=== PATIENT | male | born 1985 | race Caucasian/White ===

== ENCOUNTER → 2021-07-20 14:18 | Outpatient (CLI) | payer MEDICAID, SELFPAY | PROVIDERS: Visit Provider Nurse Practitioner | DX: Z20.822 Contact with and (suspected) exposure to COVID-19 (principal) | CPT/HCPCS: C9803; U0003; U0005 ==

== ENCOUNTER 2021-12-15 15:02 | Emergency (ER) | payer MEDICAID, SELFPAY ==
[2021-12-15 16:15] VITALS: BP 121/89; PULSE 121; RESP 18; TEMP 36.6; O2SAT 99; BMI 38.4
--- NOTE | 2021-12-15 16:57 | HMH.EDUTC ---
[facility] [place]: Injury of conjunctiva and corneal abrasion of right eye w/o FB Qualifiers: Encounter type: initial encounter Qualified Code(s): S05.01XA - Injury of conjunctiva and corneal abrasion without foreign body, right eye, initial encounter Disposition: Home, Self-Care Condition on Discharge: Good Instructions: DI for Corneal Abrasion, Corneal Abrasion Additional Instructions: Use the eye drops as directed. If your symptoms are not feeling better within 48 to 72 hours, please follow up with your eye doctor. If you do not have one, I recommend for you to follow up with [facility]-- Follow up with your regular doctor. GO TO THE ER FOR ANY WORSENING SYMPTOMS OR CONCERNS Prescriptions: Moxifloxacin HCl [Vigamox] 1 drp EYE-RIGHT TID 7 Days #3 ml Transmission Status: Pending to [id number] Referrals: Agustin Sawyer MD [Primary Care Provider] - Time of Disposition: 17:20 Medical Decision Making - Medical Records Medical records reviewed: No: I reviewed the patient's medical records. - Fernando Inquiry Pt receiving controlled substance: No Vital Signs: 12/15/21 16:15 Temperature 97.9 F Temperature Source Oral Pulse Rate [Right Brachial] 121 H Respiratory Rate 18 Blood Pressure [Right Arm] 121/89 Blood Pressure Mean [Right Arm] 99 Blood Pressure Source [Right Arm] Automatic Cuff Blood Pressure Position [Right Arm] Sitting 02 Sat by Pulse Oximetry 99 Oxygen Delivery Method Room Air [facility] [place] - General Stated complaint: rt eye irritation/burning Time Seen by Provider: 12/15/21 16:57 Mode of Arrival: Ambulatory Source of Information: Patient Limitations: No Limitations Description of Symptoms (Recalled from Triage Doc. by RN): PATIENT C/O PAIN IN RIGHT EYE X 2 WEEKS HEENT Symptoms (Recalled from RN notes): Yes Resp Symptoms (Recalled from RN notes): No Skin Symptoms (Recalled from RN notes): No MS Symptoms (Recalled from RN notes): No Functional Status (Recalled from RN notes): WNL - History of Present Illness Provider Complaint: He state that for the past 2 weeks he has had right eye irritation. His symptoms are usually better in the mornings, but by the end of the evening they return and his eye feels irritated. He denies any injury, possibility of foreign body. He denies any change in his vision. - Related Data Previous Rx's Medication Instructions Recorded Moxifloxacin HCl [Vigamox] 1 drp EYE-RIGHT TID 7 Days #3 ml 12/15/21 Allergies Allergy/AdvReac Type Severity Reaction Status Date / Time Penicillins Allergy Verified 12/15/21 16:31 Sulfa (Sulfonamide Allergy Verified 12/15/21 16:31 Antibiotics) - Worker's Comp Is this a Worker's Comp case?: No [facility] History - Hepatitis A Screen Drug use history?: No High risk sexual behaviors?: No History of sexually transmitted infection?: No Currently employed?: No Childcare worker?: No Do you have indoor plumbing?: Yes Do you have electricity?: Yes Attestation statement:: This patient has been screened for Hepatitis A risk factors. I have reviewed the patient's past medical history: Yes ROS Obtained: Yes All systems reviewed & no additional complaints - Constitutional Constitutional: Denies chills, Denies fever(s) - Eyes Eyes: Reports as per HPI, Denies change in vision - ENT Ears, Nose, Mouth, and Throat: Denies dizziness, Denies otalgia, Denies sore throat - Cardiovascular Cardiovascular: Denies chest pain - Respiratory Respiratory: Denies chest congestion, Denies cough Physical Exam - General General appearance: alert, in no apparent distress - Head Head exam: atraumatic, normocephalic, normal inspection - Eye Eye exam: Present: PERRL, EOMI - Expanded Eye Exam Eyelids: left: normal inspection Pupils: Bilateral: regular, round, reactive, size (3), size (3) Sclera/Conjunctival: left: normal inspection, right: injection Vi
[2021-12-15 17:23] VITALS: BP 121/89; PULSE 121; RESP 18; TEMP 36.6; O2SAT 99
== END 2021-12-15 17:31 | disposition home or self-care (01) ==
PROVIDERS: Emergency Provider Nurse Practitioner Family; PCP Emergency Medicine
DX: S05.01XA Injury of conjunctiva and corneal abrasion without foreign body, right eye, initial encounter (principal); Z88.0 Allergy status to penicillin; Z88.2 Allergy status to sulfonamides
CPT/HCPCS: 99212; G0463

== ENCOUNTER → 2022-07-06 13:24 | Outpatient (CLI) | payer MEDICAID, SELFPAY ==
--- NOTE | 2022-07-06 13:24 | MR_ITS ---
FINAL REPORT CLINICAL HISTORY: Abnormal EMG suggestive of C5-C6 cervical radiculo pain down both arms x 5 years FINDINGS: Multiplanar MR imaging of the cervical spine was performed without contrast. On the sagittal T2-weighted images, disc degeneration is seen throughout. There is no evidence of fracture. The vertebral alignment is normal. The cervical spinal cord has an unremarkable appearance without evidence of mass, edema or syrinx. No significant canal stenosis is identified. The cervicomedullary junction is normal. C2-3: There is no significant canal stenosis or neural foraminal narrowing. C3-4: Small central disc protrusion is present. There is no significant canal stenosis or neural foraminal narrowing. C4-5: Small central disc protrusion is present. There is no significant canal stenosis or neural foraminal narrowing. C5-6: Small central disc protrusion is present. There is no significant canal stenosis or neural foraminal narrowing. C6-7: An annular bulge is present. There is a small central disc protrusion with mild left neural foraminal narrowing. C7-T1: There is no significant canal stenosis or neural foraminal narrowing. IMPRESSION: Multilevel small central disc protrusions. Reviewed, Interpreted and Dictated by Mukesh Robles III, MD Transcribed by Kassandra Wilson Authenticated and [facility]
== END ==
PROVIDERS: PCP Nurse Practitioner Family; Visit Provider Nurse Practitioner Family
DX: E11.9 Type 2 diabetes mellitus without complications (principal); M79.601 Pain in right arm; M79.602 Pain in left arm; M79.641 Pain in right hand; M79.642 Pain in left hand; R94.131 Abnormal electromyogram [EMG]; Z79.84 Long term (current) use of oral hypoglycemic drugs
CPT/HCPCS: 72141; 76376

== ENCOUNTER → 2022-07-06 14:27 | Outpatient (CLI) | payer MEDICAID, SELFPAY ==
--- NOTE | 2022-07-06 14:32 | XR_ITS ---
FINAL REPORT CLINICAL HISTORY: Abnormal EMG suggestive of cervical radiculopathy FINDINGS: CERVICAL SPINE COMPLETE/FLEXION & EXT Seven views demonstrate no acute fracture. The disc spaces are well preserved. There is no malalignment with flexion and extension maneuver. IMPRESSION: No acute process. Reviewed, Interpreted and Dictated by Mukesh Robles III, MD Transcribed by Kassandra Wilson Authenticated and [facility]
[2022-07-06 16:02] LABS: Creatine Kinase 40 U/L (55-170)
[2022-07-06 16:33] LABS: Hemoglobin A1C 5.2 % (4.0-6.0)
[2022-07-06 18:11] LABS: Folate 4.58 ng/mL
[2022-07-08 15:10] LABS: Aldolase 5.9 U/L (3.3-10.3)
== END ==
PROVIDERS: PCP Nurse Practitioner Family; Visit Provider Nurse Practitioner Family
DX: E11.9 Type 2 diabetes mellitus without complications (principal); M79.601 Pain in right arm; M79.602 Pain in left arm; M79.641 Pain in right hand; M79.642 Pain in left hand; R94.131 Abnormal electromyogram [EMG]; Z79.84 Long term (current) use of oral hypoglycemic drugs
CPT/HCPCS: 36415; 72052; 82085; 82550; 82746; 83036

== ENCOUNTER 2022-09-30 13:00 | Outpatient (RCR) | payer MEDICAID, SELFPAY | END 2022-09-30 13:05 | disposition home or self-care (01) | LOC: PT 13:00 | PROVIDERS: PCP Nurse Practitioner Family; Visit Provider Podiatrist Foot & Ankle Surgery | DX: S93.529D Sprain of metatarsophalangeal joint of unspecified toe(s), subsequent encounter (principal) | CPT/HCPCS: 97010; 97014; 97035; 97110; 97163; G0283 ==

== ENCOUNTER → 2022-10-27 10:55 | Outpatient (CLI) | payer MEDICAID, SELFPAY | PROVIDERS: PCP Nurse Practitioner Family; Visit Provider Nurse Practitioner Family | DX: R00.2 Palpitations (principal) | CPT/HCPCS: 93225; 93226 ==

== ENCOUNTER → 2022-12-13 09:43 | Outpatient (CLI) | payer MEDICAID, SELFPAY ==
[2022-12-13 11:23] LABS: Hemoglobin A1C 8.4 % (4.0-6.0)
[2022-12-13 11:52] LABS: Creatine Kinase 51 U/L (55-170)
[2022-12-14 14:34] LABS: Aldolase 7.7 U/L (3.3-10.3)
[2022-12-18 17:36] LABS: Antinuclear Antibodies (ANA) NEGATIVE
== END ==
PROVIDERS: PCP Nurse Practitioner Family; Visit Provider Nurse Practitioner Family
DX: M79.601 Pain in right arm (principal); M79.602 Pain in left arm; M79.641 Pain in right hand; M79.642 Pain in left hand; R94.131 Abnormal electromyogram [EMG]; E11.9 Type 2 diabetes mellitus without complications; Z79.84 Long term (current) use of oral hypoglycemic drugs
CPT/HCPCS: 36415; 82085; 82550; 83036; 86038; 86225; 86235

== ENCOUNTER → 2022-12-28 06:43 | Outpatient (CLI) | payer MEDICAID, SELFPAY | PROVIDERS: PCP Nurse Practitioner Family; Visit Provider Nurse Practitioner Family | DX: R00.0 Tachycardia, unspecified (principal); I10 Essential (primary) hypertension; E78.5 Hyperlipidemia, unspecified; R94.31 Abnormal electrocardiogram [ECG] [EKG] | CPT/HCPCS: 78452; 93017; 93306; A9502; J2785; Q9957 ==

== ENCOUNTER 2024-02-06 14:00 | Outpatient (RCR) | payer MEDICAID, SELFPAY | END 2024-02-06 15:00 | disposition home or self-care (01) | LOC: OT 14:00 | PROVIDERS: Visit Provider Nurse Practitioner Family | DX: G56.23 Lesion of ulnar nerve, bilateral upper limbs (principal) | CPT/HCPCS: 97010; 97014; 97035; 97110; 97140; 97166; 97530; G0283 ==